=== PATIENT | male | born 1935 | race Caucasian/White ===

== ENCOUNTER 2019-04-14 11:54 | Outpatient (RCR) | payer SELFPAY | END 2019-04-14 23:59 | disposition home or self-care (01) | LOC: ANHAUDIO 11:54 | PROVIDERS: PCP Family Medicine; Visit Provider Otolaryngology | DX: Z46.1 Encounter for fitting and adjustment of hearing aid (principal) | CPT/HCPCS: 99199; V5014 ==

== ENCOUNTER 2019-08-26 16:54 | Emergency (ER) | payer MEDICARE, SELFPAY ==
[2019-08-26 16:57] VITALS: BP 157/87; PULSE 61; RESP 20; TEMP 36.9; O2SAT 97
--- NOTE | 2019-08-26 17:19 | ED.EPISTAXIS ---
HPI - Epistaxis General Chief complaint: Epistaxis <SRIDEVI Pope Last Filed: 08/26/19 18:19> Stated complaint: nosebleed <SRIDEVI Pope Last Filed: 08/26/19 18:19> Time Seen by Provider: 08/26/19 17:00 <SRIDEVI Pope Last Filed: 08/26/19 18:19> Source: patient <SRIDEVI Pope Last Filed: 08/26/19 18:19> Mode of arrival: ambulatory <SRIDEVI Pope Last Filed: 08/26/19 18:19> Limitations: no limitations <SRIDEVI Pope Last Filed: 08/26/19 18:19> History of Present Illness HPI Narrative: Patient is an 83-year-old male who presents to emergency department for evaluation of epistaxis from the right nare blew his nose had bleeding has had some rhinorrhea over the last several days applied pressure however continues to have some light bleeding from the right nare patient denies any other bleeding patient is taking Plavix patient on arrival denies any pain or other complaints and is resting comfortably in the room presents with family <SRIDEVI Pope Last Filed: 08/26/19 18:19> Related Data Home medications: Home Medications Medication Instructions Recorded Confirmed albuterol sulfate [Ventolin HFA] 2 puff INHALATION Q4H 08/26/19 aspirin [Aspirin Low Dose] 81 mg PO HS 08/26/19 atorvastatin 20 mg PO DAILY 08/26/19 clopidogrel 75 mg PO DAILY 08/26/19 escitalopram oxalate 20 mg PO DAILY 08/26/19 finasteride 5 mg PO HS 08/26/19 fluticasone propion-salmeterol 1 inh INHALATION BID 08/26/19 [Advair Diskus] gabapentin 600 mg PO DAILY 08/26/19 metformin 1,000 mg PO DAILY 08/26/19 metoprolol tartrate 25 mg PO DAILY 08/26/19 roflumilast [Daliresp] 500 mcg PO DAILY 08/26/19 tiotropium bromide [Spiriva with 1 cap INHALATION HS 08/26/19 HandiHaler] triamterene-hydrochlorothiazid 1 tablet PO DAILY 08/26/19 <SRIDEVI Pope Filed: 08/26/19 18:19> Allergies/adverse reactions: Allergies Allergy/AdvReac Type Severity Reaction Status Date / Time Penicillins Allergy Unknown Rash Verified 08/26/19 17:02 <Eyad Costa PA-C - Last Filed: 08/26/19 18:19> Review of Systems Review of Systems: All systems reviewed & are unremarkable except as noted in HPI and below <Eyad Costa PA-C - Last Filed: 08/26/19 18:19> PMFSH Family History Family History: Family History (Updated 01/02/15 @ 10:48 by DOCTOR UNKNOWN) Other Hypertension <Eyad Costa PA-C - Last Filed: 08/26/19 18:19> Social History Social History: Social History Smoking status: Former smoker Smoking end date: 05/04/06 Alcohol intake: current Gender identity (if verbalized by the patient): Male <Eyad Costa PA-C - Last Filed: 08/26/19 18:19> Exam Narrative: Exam Narrative: GENERAL: Well-appearing, well-nourished, and in no acute distress. HEAD: Normocephalic, atraumatic. EYES: PERRLA and EOMI. ENT: Nares clear, no rhinorrhea small area of bleeding along the septum of the right nare. Mucous membranes moist. Oropharynx without tonsillar hypertrophy exudate or other lesions. EXTREMITIES: Normal range of motion. No edema. SKIN: Warm, dry, no rash. NEURO: No focal deficits. Alert and oriented x3. PSYCH: Normal mood and affect. <Eyad Costa PA-C - Last Filed: 08/26/19 18:19> Course Course Emergency Course: Patient in the room in no distress aware of case findings treatment plan and diagnosis agreeing to follow-up as directed or to return if symptoms worsen or concerns <SRIDEVI Pope Last Filed: 08/26/19 18:19> Vital Signs Vital signs: Vital Signs Temperature 36.9 C 08/26/19 16:57 Pulse Rate 61 08/26/19 16:57 Respiratory Rate 20 08/26/19 16:57 Blood Pressure 157/87 H 08/26/19 16:57 Pulse Oximetry 97 08/26/19 16:57 Temperature 36.8 C 08/26/19 18:30 Pulse Rate
[2019-08-26 18:30] VITALS: BP 137/88; PULSE 88; RESP 20; TEMP 36.8; O2SAT 99
== END 2019-08-26 18:31 | disposition home or self-care (01) ==
LOC: ANHED 17:27
PROVIDERS: Emergency Provider Emergency Medicine; PCP Family Medicine
DX: R04.0 Epistaxis (principal); Z79.02 Long term (current) use of antithrombotics/antiplatelets; Z79.82 Long term (current) use of aspirin
CPT/HCPCS: 30901; 99282

== ENCOUNTER 2019-11-17 12:30 | Outpatient (RCR) | payer SELFPAY | END 2019-11-17 23:59 | disposition home or self-care (01) | LOC: ANHAUDIO 12:30 | PROVIDERS: PCP Family Medicine; Visit Provider Family Medicine | DX: Z46.1 Encounter for fitting and adjustment of hearing aid (principal) | CPT/HCPCS: 99199 ==

== ENCOUNTER 2021-03-13 14:31 | Outpatient (CLI) | payer MEDICARE, SELFPAY | END 2021-03-13 14:32 | disposition home or self-care (01) | LOC: ANHAUDIO 14:32 | PROVIDERS: PCP Family Medicine; Visit Provider Otolaryngology | DX: H90.3 Sensorineural hearing loss, bilateral (principal) | CPT/HCPCS: 92557; 92567 ==

== ENCOUNTER 2021-06-12 15:00 | Outpatient (RCR) | payer MEDICARE, SELFPAY | END 2021-06-12 23:59 | disposition home or self-care (01) | LOC: ANHAUDIO 15:00 | PROVIDERS: PCP Family Medicine; Visit Provider Family Medicine | DX: Z46.1 Encounter for fitting and adjustment of hearing aid (principal) | CPT/HCPCS: 99199 ==

== ENCOUNTER 2021-09-09 09:57 | Outpatient (RCR) | payer MEDICARE, SELFPAY | END 2021-09-09 23:59 | disposition home or self-care (01) | LOC: ANHAUDIO 09:57 | PROVIDERS: PCP Family Medicine; Visit Provider Family Medicine | DX: Z46.1 Encounter for fitting and adjustment of hearing aid (principal) | CPT/HCPCS: 99199 ==

== ENCOUNTER 2021-10-24 11:03 | Outpatient (CLI) | payer MEDICARE, SELFPAY | END 2021-10-24 11:04 | disposition home or self-care (01) | LOC: ANHAUDIO 11:04 | PROVIDERS: PCP Family Medicine; Visit Provider Otolaryngology | DX: H90.3 Sensorineural hearing loss, bilateral (principal); H90.41 Sensorineural hearing loss, unilateral, right ear, with unrestricted hearing on the contralateral side; H90.42 Sensorineural hearing loss, unilateral, left ear, with unrestricted hearing on the contralateral side | CPT/HCPCS: 92557; 92567 ==